=== PATIENT | male | born 1995 | race Two or more races ===

== ENCOUNTER 2025-01-19 01:26 | Emergency (ER) | payer MEDICAID, OTHER ==
[~2025-01-19] VITALS: Ht 177.8 cm; Wt 68.0 kg
[2025-01-19 02:24] LABS: Hematocrit 46.5 % (41.0-53.0); Hemoglobin 15.9 g/dL (13.5-17.5); Mean Corpuscular Hemoglobin 32.0 pg (28.0-32.0); Mean Corpuscular Volume 93.4 fL (80.0-100.0); Nucleated Red Blood Cells % 0.1 %
[2025-01-19 02:31] LABS: Chloride 102 mmol/L (98-107); Potassium 3.7 mmol/L (3.5-5.1); Sodium 139 mmol/L (136-145)
[2025-01-19 02:32] LABS: Anion Gap 10 (5-15); Calcium 9.7 mg/dL (8.7-10.4); Carbon Dioxide 27 mmol/L (20-31)
[2025-01-19 02:34] LABS: Urine Protein, UAD Negative (Negative)
[2025-01-19 02:37] LABS: BUN/Creatinine Ratio 6.8 (10.0-20.0); Blood Urea Nitrogen 7 mg/dL (9-23); Glucose 157 mg/dL (74-106)
[2025-01-19 02:44] LABS: Lactic Acid w/Reflex 2.1 mmol/L (0.4-2.0)
[2025-01-19 03:13] VITALS: BP 115/84; PULSE 105; RESP 18; O2SAT 99
--- NOTE | 2025-01-19 03:20 | ED.PDOC ---
General HPI Comments 29-year-old male presents to ER with urinary complaint x3 days. Patient reports he has been experiencing burning with urination x3 days with associated hematuria, chills, intermittent lower back pain and fever x1 day. Denies any current pain and reports use of over the counter azo urinary relief without improvement. Denies night sweats, n/v, abdominal/pelvic pain, exposure to STD, further changes in urination or any further symptoms/complications Chief Complaint: Urinary Time Seen by MD: 01:41 Primary Care Provider: UNKNOWN Reviewed notes: Nurses Notes, Medications, Allergies Allergies: Uncoded Allergies: CILLINS (Allergy, Unknown, 01/19/25) Information Source: Patient Mode of Arrival: Ambulatory Past Medical History PAST MEDICAL HISTORY: Denies Surgical History: Denies all surgeries Family History Family History: Unknown Social History Smoker: Non-Smoker Alcohol: Denies ETOH Use Drugs: Denies Drug Use Lives In: Home Constitutional: reports: others (As stated in HPI) EENTM: denies: blurred vision, double vision, ear bleeding, ear discharge, ear drainage, ear pain, ear ringing, eye pain, eye redness, hearing loss, mouth pain, mouth swelling, nasal discharge, nose bleeding, nose congestion, nose pain, photophobia, tearing, throat pain, throat swelling, voice changes, others Respiratory: denies: cough, hemoptysis, orthopnea, SOB at rest, shortness of breath, SOB with excertion, stridor, wheezing, others Cardiovascular: denies: chest pain, dizzy spells, diaphoresis, Dyspnea on exertion, edema, irregular heart beat, left arm pain, lightheadedness, palpitations, PND, syncope, others Gastrointestinal: denies: abdomen distended, abdominal pain, blood streaked bowels, constipated, diarrhea, dysphagia, difficulty swallowing, hematemesis, melena, nausea, poor appetite, poor fluid intake, rectal bleeding, rectal pain, vomiting, others Genitourinary: reports: others (As stated in HPI) Neurological: denies: dizziness, fainting, headache, left sided numbness, left sided weakness, numbness, paresthesia, pre-existing deficit, right sided numbness, right sided weakness, seizure, speech problems, tingling, tremors, weakness, others Musculoskeletal: reports: others (As stated in HPI) Integumetry: denies: bruises, change in color, change in hair/nails, dryness, laceration, lesions, lumps, rash, wounds, others Allergic/Immunocompromised: denies: Difficulty Healing, Frequent Infections, Hives, Itching, others Hematologic/Lymphatic: denies: anemia, blood clots, easy bleeding, easy bruising, swollen glands, others Endocrine: denies: excessive hunger, excessive sweating, excessive thirst, excessive urination, flushing, intolerance to cold, intolerance to heat, unexplained weight gain, unexplained weight loss, others Psychiatric: denies: anxiety, bipolar disorder, depression, hopeless, panic disorder, schizophrenia, sleepless, suicidal, others Physical Exam General Appearance: No Apparent Distress HEENT: PERRL/EOMI Neck: Full Range of Motion, Non-Tender, Normal Respiratory: Chest Non-Tender, Lungs Clear, No Accessory Muscle Use, No Respiratory Distress, Normal Breath Sounds Cardiovascular: No Murmur, No Gallop, Tachycardia Breast Exam: Deferred Gastrointestinal: Non Tender, No Pulsatile Mass, Soft Genitalia: Deferred Pelvic: Deferred Rectal: Deferred Extremities: Normal capillary refill, Normal range of motion Musculoskeletal : Extremity Location: Back (No TTP to bilateral flanks or CVA tenderness noted bilaterally) Neurologic: Alert, No Motor Deficits, Normal Affect, Normal Mood, No Sensory Deficits Cerebellar Function: Normal Reflexes: Normal Skin: Dry, Normal Color, Warm Lymphatic: No Adenopathy Was a procedure done? Was a procedure done?: No Sedation Sedation?: No Differential Diagnosis Kidney stone (Female): N/A Penile/Scrotal: STD, Urolithiasis Urinary Problem (Male): Other (Urosepsis, pyelonephritis) X-Ray, Labs, Meds, VS Vital Signs Date Time Temp Pulse Resp B/P (MAP) Pulse Ox O2 Delivery O2 Flow Rate FiO2 01/19/25 03:31 Room Air* 0 21 01/19/25 03:24 98.8 01/19/25 03:13 98.8 105 18 115/84 (94) 99 98.8 01/19/25 01:35 99.2 127 18 130/79 97 99.2 Lab Test 01/19/25 01:57 01/19/25 01:40 Range/Units White Blood Count 16.6 H 4.4-10.8 10^3/uL Red Blood Count 4.97 4.5-5.90 10^6/uL Hemoglobin 15.9 13.5-17.5 g/dL Hematocrit 46.5 41.0-53.0 % Mean Corpuscular Volume 93.4 80.0-100.0 fL Mean Corpuscular Hemoglobin 32.0 28.0-32.0 pg Mean Corpuscular Hemoglobin Concent 34.3 32.0-36.0 g/dL Red Cell Distribution Width 12.6 11.8-14.3 % Platelet Count 263 140-450 10^3/uL Mean Platelet Volume 9.1 6.9-10.8 fL Neutrophils (%) (Auto) 86.0 H 37.0-80.0 % Lymphocytes (%) (Auto) 7.9 L 10.0-50.0 % Monocytes (%) (Auto) 5.4 0.0-12.0 % Eosinophils (%) (Auto) 0.3 0.0-7.0 % Basophils (%) (Auto) 0.4 0.0-2.0 % Neutrophils # (Auto) 14.3 H 1.6-8.6 10 ^3/uL Lymphocytes # (Auto) 1.3 0.4-5.4 10 ^3/uL Monocytes # (Auto) 0.9 0-1.3 10 ^3/uL Eosinophils # (Auto) 0.1 0-0.8 10 ^3/uL Basophils # (Auto) 0.1 0-0.2 10 ^3/uL Nucleated Red Blood Cells 0.1 % Sodium Level 139 136-145 mmol/L Potassium Level 3.7 3.5-5.1 mmol/L Chloride Level 102 98-107 mmol/L Carbon Dioxide Level 27 20-31 mmol/L Anion Gap 10 5-15 Blood Urea Nitrogen 7 L 9-23 mg/dL Creatinine 1.03 0.700-1.30 mg/dL Glomerular Filtration Rate Calc 102 >90 mL/min BUN/Creatinine Ratio 6.8 L 10.0-20.0 Serum Glucose 157 H 74-106 mg/dL Lactic Acid Level 2.1 *H 0.4-2.0 mmol/L Calcium Level 9.7 8.7-10.4 mg/dL Urine Color Colorless Yellow Urine Clarity Turbid H Clear Urine pH 6.0 5.0-9.0 Urine Specific [place] 1.005 1.001-1.035 Urine Protein Negative Negative Urine Ketones Negative Negative Urine Blood 3+ H Negative /uL Urine Nitrite Negative Negative Urine Bilirubin Negative Negative Urine Urobilinogen Normal Negative mg/dL Urine Leukocyte Esterase 3+ Negative /uL Urine RBC 8 0 - 3 /hpf Urine Microscopic WBC 140 H 0-3 /HPF Urine Squamous Epithelial Cells None seen <5 /hpf Urine Bacteria Few H None Seen /hpf Urine Glucose Normal Normal mg/dL Chlamydia trachomatis (DEV) Pending Neisseria gonorrhoeae (DEV) Pending Current Medications Medications (Trade) Dose Ordered Sig/Tara Route Start Time Stop Time Status Last Admin Ceftriaxone Sodium 50 ml @ 100 mls/hr ONCE ONCE IV 01/19/25 03:00 01/19/25 03:29 DC 01/19/25 03:29 Sodium Chloride 1,000 ml @ 1,000 mls/hr Q1H ONCE IV 01/19/25 03:00 01/19/25 03:59 DC 01/19/25 03:23 Acetaminophen (Tylenol Tablet) 650 mg ONCE ONCE PO 01/19/25 03:00 01/19/25 03:01 DC 01/19/25 03:24 CBC reviewed-+ leukocytosis, + neutrophilia BMP reviewed without any significant abnormalities Lactic acid reviewed -2.1 Urinalysis reviewed-urine leukocyte esterase 3+, urine blood 3+, urine nitrites negative Urine cultures ordered Blood cultures ordered Hep-Lock IV ordered NS 1 L IV ordered Rocephin 1 g IV ordered Tylenol 650 mg p.o. ordered Discussed with patient that I would would like to put him up for admission for complicated UTI and continued need for IV antibiotics. Patient refused admission and states he would like to sign out against medical advice Several attempts were made to convince patient to stay for further evaluat ion/treatment and need for admission without success Risks of signing out AMA were discussed with patient in full details including risk of partial/permanent disability, risks of sepsis and risk of Patient alert and oriented x4 and verbalized full understanding of signing out against medical advice Patient signed out of ER against medical advice Time of 1ST Reevaluation: 03:14 Reevaluation 1ST: N/A Patient Education/Counseling: Diagnosis, Treatment, Prognosis, Need For Follow Up Family Education/Counseling: No Family Present SEPSIS Sepsis Screen Date sepsis recognized/suspect: Jan 19, 2025 Time Sepsis recognized/suspect: 0137 Recent Procedure: No On Antibiotic Therapy: No Respiratory Rate >20: No Heart Rate >90: Yes Temp<36 C (96.8 F) or >38.3 C: No SBP <90 or MAP <65 mmHG: No New Acute Mental Status Change: No Is the patient on CPAP, BIPAP,: No Physician Orders Chlamydia/Gc Amplification (01/19/25 01:41) Urine Bacterial Culture (01/19/25 02:51) Heplock Iv (01/19/25 ) Vital Signs Date Time Temp Pulse Resp B/P (MAP) Pulse Ox O2 Delivery O2 Flow Rate FiO2 01/19/25 03:31 Room Air* 0 21 01/19/25 03:24 98.8 01/19/25 03:13 98.8 105 18 115/84 (94) 99 98.8 01/19/25 01:35 99.2 127 18 130/79 97 99.2 Laboratory Tests Test 01/19/25 01:57 Lactic Acid Level 2.1 mmol/L (0.4-2.0) *H White Blood Count 16.6 10^3/uL (4.4-10.8) H Medications Medications Dose Ordered Sig/Tara Route Start Time Stop Time Status Last Admin Dose Admin Acetaminophen 650 mg ONCE ONCE PO 01/19/25 03:00 01/19/25 03:01 DC 01/19/25 03:24 Ceftriaxone Sodium 50 ml @ 100 mls/hr ONCE ONCE IV 01/19/25 03:00 01/19/25 03:29 DC 01/19/25 03:29 Sodium Chloride 1,000 ml @ 1,000 mls/hr Q1H ONCE IV 01/19/25 03:00 01/19/25 03:59 DC 01/19/25 03:23 Departure 1 Departure Time of Disposition: 04:12 Impression: Primary Impression: Complicated UTI (urinary tract infection) Disposition: LEFT AGAINST MEDICAL ADVICE Condition: Serious Critical Care Note Critical Care Time?: No Stability Stability form required: No Heart Score Heart Score: Heart Score Response (Comments) Value History N/A 0 EKG N/A 0 Age N/A 0 Risk Factors N/A 0 Troponin N/A 0 Total 0 EULA WILSON Jan 19, 2025 03:20
[2025-01-19] MEDS: SODIUM CHLORIDE 0.9% 1,000 ML IV ONE (03:23)
[2025-01-19 03:24] VITALS: TEMP 98.8
[2025-01-19] MEDS: ACETAMINOPHEN 325 MG TAB PO ONE (03:24)
[2025-01-20 16:07] LABS: Chlamydia Trachomatis, NAA Negative (Negative); Neisseria gonorrhoeae, NAA Negative (Negative)
== END 2025-01-19 03:21 | disposition left against medical advice (07) ==
LOC: ER 01:31
DX: N39.0 Urinary tract infection, site not specified (principal)
CPT/HCPCS: 36415; 80048; 81001; 83605; 85025; 87086; 87088; 87186; 87491; 87591; 96365; 99284; J0696; J7030